=== PATIENT | female | born 1965 | race Two or more races ===

== ENCOUNTER 2018-10-06 00:02 | Emergency (ER) | payer BC ==
[~2018-10-06] VITALS: Ht 180.3 cm; Wt 59.0 kg
[2018-10-06] MEDS ORDERED: ZYNCOF 20-400120 ML PO (02:48)
[2018-10-06] MEDS ORDERED: DICLOFENAC SODI50 MG PO (02:48)
== END 2018-10-06 02:54 ==
LOC: ER 00:02
DX: R06.02 Shortness of breath (principal)